=== PATIENT | female | born 1990 | race Caucasian/White ===

== ENCOUNTER 2023-04-22 22:51 | Emergency (ER) | payer MEDICAID, SELFPAY ==
[2023-04-22 22:54] VITALS: BP 114/81; PULSE 102; RESP 16; TEMP 37.1; O2SAT 96; BMI 28.5
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
[2023-04-23] MEDS: Ibuprofen 200 MG Tablet 600 MG PO (00:29)
== END 2023-04-23 00:38 | disposition home or self-care (01) ==
PROVIDERS: Emergency Provider Emergency Medicine; Visit Provider Emergency Medicine
DX: S80.811A Abrasion, right lower leg, initial encounter (principal); S80.812A Abrasion, left lower leg, initial encounter; S50.811A Abrasion of right forearm, initial encounter; S50.812A Abrasion of left forearm, initial encounter; S50.01XA Contusion of right elbow, initial encounter; S50.11XA Contusion of right forearm, initial encounter; V48.5XXA Car driver injured in noncollision transport accident in traffic accident, initial encounter
CPT/HCPCS: 73060; 73090; 99284